=== PATIENT | male | born 1965 ===

== ENCOUNTER 2021-02-17 09:53 | Emergency (ER) | payer BC ==
[2021-02-17 10:02] VITALS: BP 136/80
[2021-02-17] MEDS ORDERED: predniSONE 20 MG TAB PO ONE (10:26)
[2021-02-17] MEDS ORDERED: BENZONATATE 100 MG CAP PO ONE (10:26)
--- NOTE | 2021-02-17 10:27 | Emergency Department Report ---
ED Shortness of Breath HPI - General Chief Complaint: Dyspnea/Respdistress Stated Complaint: ED/COUGHING Time Seen by Provider: 02/17/21 10:21 Source: patient Mode of arrival: Ambulatory Limitations: No Limitations - History of Present Illness Initial Comments: 55-year-old morbid obese male presents to the emergency room for a week of shortness of breath difficulty breathing cough hot and cold sweats head congestion. Patient states the last 4 days has been taking NyQuil and Mucinex. His PCP is in [place]. He has a past medical history of hypertension and sleep apnea. He currently takes metoprolol and lisinopril but has been noncompliant. 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 Patient vital signs is 98.5 temp 136/86 blood pressure 96% room air and pulse is 72. MD Complaint: shortness of breath, cough Onset/Timin -: week(s) Severity: severe Consistency: constant Improves With: nothing Worsens With: exertion, coughing Known History Of: other (Hypertension and sleep apnea) Context: medication noncompliance Associated Symptoms: cough Treatments Prior to Arrival: none - Related Data Home Oxygen Therapy: No Previous Rx's Medication Instructions Recorded Last Taken Type Albuterol Sulfate [Proventil Hfa] 2 puff IH QID PRN #1 hfa.aer.ad 02/17/21 Unknown Rx Azithromycin [Zithromax Tri-Jack] 500 mg PO QDAY 3 Days #3 tablet 02/17/21 Unknown Rx Benzonatate [Tessalon Perles] 100 mg PO Q8HR PRN #20 capsule 02/17/21 Unknown Rx Prednisone [predniSONE 10 mg 10 mg PO .TAPER #1 tab.ds.pk 02/17/21 Unknown Rx (6-Day Pack, 21 Tabs)] Allergies Allergy/AdvReac Type Severity Reaction Status Date / Time No Known Allergies Allergy Unverified 02/17/21 10:26 ED Review of Systems ROS: Stated complaint: ED/COUGHING Other details as noted in HPI Comment: All other systems reviewed and negative ED Past Medical Hx - Past Medical History Previous Medical History?: Yes Hx Hypertension: Yes - Surgical History Past Surgical History?: No - Social History Smoking Status: Never Smoker - Medications Home Medications: Home Medications Medication Instructions Recorded Confirmed Last Taken Type Albuterol Sulfate [Proventil Hfa] 2 puff IH QID PRN #1 hfa.aer.ad 02/17/21 Unknown Rx Azithromycin [Zithromax Tri-Jack] 500 mg PO QDAY 3 Days #3 tablet 02/17/21 Unknown Rx Benzonatate [Tessalon Perles] 100 mg PO Q8HR PRN #20 capsule 02/17/21 Unknown Rx Prednisone [predniSONE 10 mg 10 mg PO .TAPER #1 tab.ds.pk 02/17/21 Unknown Rx (6-Day Pack, 21 Tabs)] ED Physical Exam - General Limitations: No Limitations General appearance: alert, in no apparent distress - Head Head exam: Present: atraumatic, normocephalic - Eye Eye exam: Present: normal appearance - ENT ENT exam: Present: normal exam, normal external ear exam - Neck Neck exam: Present: normal inspection, full ROM - Respiratory Respiratory exam: Present: normal lung sounds bilaterally, other (Coughing) - Cardiovascular Cardiovascular Exam: Present: regular rate - Extremities Exam Extremities exam: Present: normal inspection, full ROM - Back Exam Back exam: Present: normal inspection, full ROM - Neurological Exam Neurological exam: Present: alert, oriented X3, CN II-XII intact, normal gait - Psychiatric Psychiatric exam: Present: normal affect, normal mood - Skin Skin exam: Present: warm, dry, intact, normal color. Absent: rash ED Course Vital Signs 02/17/21 02/17/21 10:00 10:01 Temperature 98.5 F Pulse Rate 72 Respiratory 20 Rate Blood Pressure 136/80 O2 Sat by Pulse 96 96 Oximetry ED Medical Decision Making - Medical Decision Making 55-year-old morbid obese male presents to the emergency room for a week of shortness of breath difficulty breathing cough hot and cold sweats head congestion. Patient states the last 4 days has been taking NyQuil and Mucinex. His PCP is in [place]. He has a past medical history of hypertension and sleep apnea. He currently takes metoprolol and lisinopril but has been noncompliant. 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 Patient vital signs is 98.5 temp 136/86 blood pressure 96% room air and pulse is 72. Critical care attestation.: If time is entered above; I have spent that time in minutes in the direct care of this critically ill patient, excluding procedure time. ED Disposition Clinical Impression: Pneumonia involving left lung Qualifiers: Pneumonia type: due to unspecified organism Lung location: upper lobe of lung Qualified Code(s): J18.9 - Pneumonia, unspecified organism Disposition: DC-01 TO HOME OR SELFCARE Is pt being admited?: No Does the pt Need Aspirin: No Condition: Stable Instructions: Bacterial Pneumonia (ED), Community-Acquired Pneumonia, Adult, [id number] Additional Instructions: X-ray shows you have pneumonia in your left lower lung. You need to complete the antibiotics as prescribed cough medication and inhaler as needed for shortness of breath. Complete your prednisone pack. I would like for you to start back taking your blood pressure medication. Follow-up with your primary care provider. Is very important to increase your fluid intake. Tylenol or ibuprofen as needed for pain. Rest. I do recommend getting a Covid test. Prescriptions: Prednisone [predniSONE 10 mg (6-Day Pack, 21 Tabs)] 10 mg PO .TAPER #1 tab.ds.pk Albuterol Sulfate [Proventil Hfa] 2 puff IH QID PRN #1 hfa.aer.ad PRN Reason: Shortness Of Breath Benzonatate [Tessalon Perles] 100 mg PO Q8HR PRN #20 capsule PRN Reason: Cough Azithromycin [Zithromax Tri-Jack] 500 mg PO QDAY 3 Days #3 tablet Referrals: HANS VIEYRA MD [Staff Physician] - 3-5 Days Forms: Work/School Release Form(ED)
--- NOTE | 2021-02-17 10:42 | XRay Report ---
XR chest routine 2V INDICATION / CLINICAL INFORMATION: Shortness of breath, cough COMPARISON: None available. FINDINGS: SUPPORT DEVICES: None. HEART / MEDIASTINUM: No significant abnormality. LUNGS / PLEURA: Left perihilar parenchymal opacities. Right elevated hemidiaphragm. Costophrenic sulc i are sharp. No pneumothorax. ADDITIONAL FINDINGS: No significant additional findings. IMPRESSION: 1. No perihilar airspace disease concerning for pneumonia. Signer Name: Ron Elliott MD Signed: 02/17/2021 10:37 AM Workstation Name: [id number]
== END 2021-02-17 11:00 | disposition home or self-care (01) ==
LOC: ED 09:53
DX: J18.9 Pneumonia, unspecified organism (principal); I10 Essential (primary) hypertension; Z79.2 Long term (current) use of antibiotics; Z79.899 Other long term (current) drug therapy
CPT/HCPCS: 71046; 99283; J7512